=== PATIENT | female | born 1965 | race Caucasian/White ===

== ENCOUNTER 2017-08-11 09:21 | Emergency (ER) | payer BC ==
--- NOTE | 2017-08-11 10:14 | UC ---
Breast Complaint - HPI Summary HPI Summary: Pt presents with two complaints 1) Right side pain that radiates under her right breast. This pain started about 2 months ago and is worse with movement. 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 She gets a mammogram yearly and has done self breast exams without abnormalities. She has not taken anything for this pain. Denies fever, chills, chest pain, SOB, abdominal pain, N/V/D/C, or pain with breathing. 2) She also complains of right plantar surface pain for the past month. She reports a stabbing pain on the foot pad just below her 2nd and 3rd toes. Is painful at all times of the day. She has not taken anything for this pain or tried any shoe inserts. She has not changed her footwear recently and denies injury. - History of Current Complaint Hx Obtained From: Patient - Allergy/Home Medications Allergies/Adverse Reactions: Allergies Allergy/AdvReac Type Severity Reaction Status Date / Time No Known Allergies Allergy Verified 08/11/17 09:38 Home Medications: Home Medications Acetaminophen [Tylenol 8 Hour Arthritis] 2 tab PO BID PRN 08/11/17 [History Confirmed 08/11/17] PMH/Surg Hx/FS Hx/Imm Hx Previously Healthy: Yes - Surgical History Surgical History: Yes Surgery Procedure, Year, and Place: UTERINE FIBROID REMOVAL - Family History Known Family History: Positive: None - Social History Occupation: Employed Full-time Lives: With Family Alcohol Use: Occasionally Substance Use Type: None Smoking Status (MU): Light Every Day Tobacco Smoker Type: Cigarettes Amount Used/How Often: 5 CIG/DAY Length of Time of Smoking/Using Tobacco: since age 20 Have You Smoked in the Last Year: Yes Cessation Counseling: Counseled 3+Min - 10 Min Review of Systems Constitutional: Negative Skin: Negative Respiratory: Negative Cardiovascular: Negative Gastrointestinal: Negative Motor: Negative Neurovascular: Negative Musculoskeletal: Other: - Pain right ribs. Pain right plantar foot. Neurological: Negative Psychological: Negative All Other Systems Reviewed And Are Negative: Yes Physical Exam Triage Information Reviewed: Yes Appearance: Well-Appearing, No Pain Distress, Well-Nourished Vital Signs: Initial Vital Signs Temp 98.5 F 08/11/17 09:30 Pulse 81 08/11/17 09:30 Resp 16 08/11/17 09:30 BP 136/76 08/11/17 09:30 Pulse Ox 100 08/11/17 09:30 Vital Signs Reviewed: Yes Neck: Positive: Supple, No Lymphadenopathy, Other: - NTTP. FROM. Respiratory: Positive: Chest non-tender, Lungs clear, Normal breath sounds, No respiratory distress, No accessory muscle use Cardiovascular: Positive: RRR, No Murmur, Pulses Normal Abdomen Description: Positive: Nontender, No Organomegaly, Soft. Negative: CVA Tenderness (R), CVA Tenderness (L), Distended, Guarding Bowel Sounds: Positive: Present Musculoskeletal: Positive: Strength Intact - Right UE and right foot/ankle, ROM Intact - Right UE and right foot/ankle, No Edema - Right UE and right foot/ankle , Other: - TTP along ~8th rib from the right midaxillary line to the right sternum - worse with right shoulder flexion to 180 deg. No erythema, ecchymosis , or edema. Right foot: TTP over plantar aspect at the base of the 2nd and 3rd toes - this reproduces stabbing/sharp pain. No erythema, ecchymosis, or edema. Neurological: Positive: Alert, Muscle Tone Normal, Other: - Right UE sensations intact C4-T1. Right foot sensations intact right foot and all toes. Psychological: Positive: Age Appropriate Behavior - Additional Comments Right breast exam. NTTP. No nipple discharge. No masses or nodules appreciated in breast or axilla. Breast Pain Course/Dx - Course Course Of Treatment: Right ribs with CXR negative today. Suspect right intercostal muscle strain due to work habits and lifting of children - especially since this motion reproduces her pain. Will rx for voltaren gel and have her take tylenol for pain. Advised to rest and heat the area. She has a yearly mammogram scheduled for next week and a follow up with her PCP upcoming - I suggested she talk to her PCP about this pain if it persists. For her foot , it is possible that she has a gordillo's neuroma vs. fasciitis. She called podiatry and has an appt for late August. I advised her to keep this appointment for further eval. In the meantime, I suggested she try plantar shoe pads or inserts to see if this improves her pain. I have also supplied her with a post-op shoe to use as needed for comfort. - Diagnoses Provider Diagnoses: Intercostal muscle strain, Foot pain, right Discharge - Discharge Plan Condition: Stable Disposition: HOME Prescriptions: Diclofenac 1% GEL (NF) [Voltaren 1% GEL (NF)] 1 applic TOPICAL TID PRN #1 tube PRN Reason: Pain Patient Education Materials: Muscle Strain (ED), Gordillo Neuroma (ED) Referrals: Zane Padgett MD [Primary Care Provider] - Additional Instructions: If you develop a fever, SOB, chest pain, new or worsening symptoms - please call your PCP or go to the ED. 1) Regarding your foot: Try the post-op shoe when active or walking around the house. May also try OTC shoe inserts or foot pads for relief with daily shoes. Please keep your appointment with podiatry in August - they can further evaluate and treat your foot pain. 2) Regarding the right side pain: Keep your scheduled mammorgram and follow up with your PCP. Avoid strenuous activity, lifting, and overhead motions. Try a heating pack and keep taking tylenol as needed.
[2017-08-11 11:21] VITALS: BP 130/78
--- NOTE | 2017-08-11 11:32 | RAD ---
INDICATION: Right rib pain COMPARISON: None TECHNIQUE: Multiple views of the ribs were obtained. FINDINGS: Bones: There is no evidence of acute rib fracture. LUNGS: The lungs are clear. There is no pneumothorax. Pleural spaces: There is no evidence of hemothorax. Other: None IMPRESSION: NEGATIVE EXAMINATION.
== END 2017-08-11 12:06 | disposition home or self-care (01) ==
LOC: UCEAST 09:21
DX: M79.671 Pain in right foot (principal); S29.011A Strain of muscle and tendon of front wall of thorax, initial encounter; X50.9XXA Other and unspecified overexertion or strenuous movements or postures, initial encounter; Y92.9 Unspecified place or not applicable
CPT/HCPCS: 99213; G0463

== ENCOUNTER 2018-01-12 08:14 | Day surgery (SDC) | payer BC ==
--- NOTE | 2018-01-03 20:38 | HP ---
CC: Zane Padgett MD * PREOPERATIVE HISTORY AND PHYSICAL: DATE OF ADMISSION: 01/12/18 This patient is scheduled for same-day surgery admission by Dr. Hamlin on Monday , 01/12/18. ATTENDING SURGEON: Carlota Hamlin MD * (dictated by Anamaria King NP). CHIEF COMPLAINT: Lump, left shoulder and lump left anterior chest wall. HISTORY OF PRESENT ILLNESS: The patient is a 52-year-old female recently evaluated by Dr. Hamlin for a mass on her left shoulder that has been present for approximately 7 years. The patient states it has increased in size from approximately the size of a peanut to now approximately the size of a lemon. She feels that this is affecting the movement of her left arm and she has an associated aching and pulling sensation in her left arm. She has another lesion located on the left anterior chest wall that has been present for about 2 years and it has also increased from pea size to its current almond size. She has also noticed redness around it. Dr. Hamlin has examined the patient and has recommended excision of the mass on her left shoulder, which is likely a lipoma as well as excision of the dermal lesion on the left anterior chest wall as a same-day surgery procedure at [facility]. Dr. Hamlin described the nature of the surgical procedure, the relevant risks and benefits. On today I reviewed the expected postoperative care and recovery. The patient has had a chance to ask questions and stated that she understands the information and is satisfied with the answers given to her questions. She will sign surgical consent on the day of surgery. PAST MEDICAL HISTORY: Significant for anxiety and depression. PAST SURGICAL HISTORY: Removal of uterine fibroid. OB HISTORY: 4, para 3, miscarriage 1. Last pelvic exam in 2017 and she is up-to-date with mammogram. She is postmenopausal since 2014. MEDICATIONS: Escitalopram 10 mg daily at 9 p.m. She is on the following supplements: 1. Vitamin D3. 2. Vitamin C. 3. Osteo Bi-Flex. ALLERGIES: No known drug allergies. FAMILY HISTORY: Mother is diabetic, has hypertension and was diagnosed with a precancerous colon tumor; the patient's sister has CLL and her father is oxygen dependent. No known anesthesia complications, bleeding tendencies or clotting disorders. 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 She denies the use of alcohol or other substances. REVIEW OF SYSTEMS: Constitutional: No fevers, chills, night sweats, excessive fatigue or weight loss. Endocrine: No diabetes or thyroid disease. Hematologic: No easy bruising or bleeding. She has never received a blood transfusion. Respiratory: No dyspnea on exertion. No chronic cough. Cardiovascular: No anginal chest pain or palpitations. Gastrointestinal: No nausea, vomiting, persistent diarrhea or constipation. Genitourinary: No dysuria. Musculoskeletal: Intermittent low back pain that extends around the right hip and onto the right thigh and generalized achiness. Integumentary: Mass on the left shoulder and left anterior chest wall as described in history of present illness, most likely consistent with lipoma. Neurologic: No headache or blurred vision or areas of numbness. General: No previous anesthesia complications or bleeding tendencies or clotting disorders. PHYSICAL EXAMINATION GENERAL SURVEY: The patient is a 52-year-old female, overweight, well developed , in no acute distress. VITAL SIGNS: Height 65 inches, weight 210 pounds, body mass index 35. Blood pressure 138/82, pulse 84 and regular, respiratory rate 18, temperature 97.8 tympanic. HEENT: Benign. NECK: Supple. No cervical lymphadenopathy. BACK: No CVA tenderness. She reports tenderness in the region of the sacrum, but on exam there is no erythema or palpable mass or evidence of pilonidal disease. LUNGS: Breath sounds bilaterally clear and equal. HEART: Regular rate and rhythm. No murmurs or rubs appreciated. BREAST EXAM: Done recently, not repeated. ABDOMEN: Active bowel sounds. Obese, soft, nondistended, nontender throughout. No obvious masses, organomegaly, or evidence of umbilical hernia. She does have a belly button piercing. PELVIC AND RECTAL EXAMS: Deferred. EXTREMITIES: No edema or skin ulceration. NEUROLOGIC: Alert and oriented x3. Steady gait. SKIN: Left shoulder with subcutaneous fleshy mass that is mobile and consistent with lipoma; lesion on left anterior chest wall is a dermal based lesion that is smooth and oval shaped and at its apex is a pigmented lesion that appears to be benign, but in the field that would be required for removal. 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 PLAN: Same-day surgery admission to Dr. Hamlin's service on 01/12/18, for excision of lipoma left shoulder and excision dermal lesion left anterior chest wall. MAURICIO KING, RESOURCE MANAGER FORESTER [id number]/[facility] #: [id number] RUBIO
[~2018-01-12 08:14] MED LIST: Buffered Lidocaine 0.9% SYRIN* 5 ML/SYR SYRINGE INTRADERM ONE; Dexamethasone IV* 4 MG/ML 1 ML (4 MG) IV SLOW PU ONE; Famotidine IV* 10 MG/ML 2 ML (20 mg) IV ONE; Ondansetron ODT TAB* 4 MG PO SCH
[2018-01-12] MEDS ORDERED: Dexamethasone IV* 4 MG/ML 1 ML (4 MG) ONE (08:16)
[2018-01-12] MEDS ORDERED: ceFAZolin 2 GM PREMIX (*) 2 GM/50 ML BAG IVPB ONE (08:16)
[2018-01-12] MEDS ORDERED: Ondansetron ODT TAB* 4 MG ONE (08:16)
[2018-01-12] MEDS ORDERED: Famotidine IV* 10 MG/ML 2 ML (20 mg) ONE (08:16)
[2018-01-12] MEDS ORDERED: Midazolam* 1 MG/ML 5 ML VIAL (5 MG) ONE (09:04)
[2018-01-12] MEDS ORDERED: fentaNYL* 50 MCG/ML 2 ML VIAL (100 MCG VIAL) ONE (09:04)
[2018-01-12] MEDS ORDERED: Lidocaine 2% PF * 5 ML VIAL ONE (09:05)
[2018-01-12] MEDS ORDERED: Propofol* 10 MG/ML 20 ML BTL IV PUSH ONE (09:05)
[2018-01-12] MEDS ORDERED: Lidocaine 1% MPF wEPI 200,000* 30 ML SDV ONE (09:31)
[2018-01-12] MEDS ORDERED: Bupivacaine 0.5% SDV PF* 30ML VIAL ONE (09:31)
[2018-01-12] MEDS ORDERED: oxyCODONE/Acetamin 5/325 MG* TAB PO PRN (10:21)
[2018-01-12] MEDS ORDERED: Ondansetron ODT TAB* 4 MG PO PRN (10:21)
[2018-01-12] MEDS ORDERED: Naloxone* 0.4 MG/ML 1 ML VIAL IV PRN (10:21)
[2018-01-12] MEDS ORDERED: DiMENhydriNATE IV* 50 MG/ML VIAL IV PUSH PRN (10:21)
--- NOTE | 2018-01-12 10:55 | BRIEFOPN ---
Brief Operative Note - Surgery Procedures: Procedures ASPIRAT CURET-POST DELIV (11/12/99) BILAT TUBAL DESTRUCT NEC (04/19/02) D & C NEC (11/10/98) MONITORING NOS (04/19/02) HYSTEROSCOPY (11/10/98) LOW CERVICAL (04/19/02) UTERINE LES DESTRUCT NEC (03/17/00) 01/12/18 Op Note Pre-op dx: mass of left shoulder and mass of left chest wall Post-op dx: same Procedure: excision of left shoulder mass and left chest wall mass Surgeon: Boubacar Asst: JENNIFER Carpio Anesth: local-MAC EBL: 5 cc SCDs on during surgery ABx: given pre-op Complications: none Pt. tolerated procedure well and was transferred to in a stable condition. CLFoster
[2018-01-12] MEDS ORDERED: Ibuprofen TAB* 400 MG PO PRN (10:56)
[2018-01-12] MEDS ORDERED: oxyCODONE/Acetamin 5/325 MG* TAB ONE (11:06)
[2018-01-12 11:15] VITALS: BP 148/83
--- NOTE | 2018-01-13 08:47 | OP ---
CC: Dr. Zane Padgett * DATE OF OPERATION: 01/12/18 - SDS DATE OF : 69 SURGEON: Dr. Hamlin SILVER CHASER: JOSY Black student. PRE-OP DIAGNOSES: Mass at the left shoulder. Mass at the left chest wall. POST-OP DIAGNOSES: Mass at the left shoulder. Mass at the left chest wall. OPERATIVE PROCEDURE: Excision of mass of left shoulder and excision of mass of left chest wall. INDICATIONS: Ms. Barrientos is a 52-year-old woman, who presented to the office with symptomatic mass at the left shoulder and new lesion of the left chest wall. This prompted the plan for surgical intervention. DESCRIPTION OF PROCEDURE: She was brought to the operating room, placed on the OR table in a supine position and given IV sedation. The left chest and shoulder were prepped and draped in the usual sterile fashion. After infiltrating with local anesthetic, an incision was made over the mass on the left shoulder and subcutaneous tissue was divided with electrocautery. Then a combination of blunt and sharp dissection was used to the excise the mass, which appeared to be consistent with a multilobulated lipoma. This was handed off as a specimen. Hemostasis was achieved with electro-cautery and once this was adequate, closure was accomplished with 3-0 Vicryl in the subcutaneous layer and the skin was closed with 4-0 Prolene in a subcuticular fashion. Attention was then turned to the lesion of the anterior chest wall and this was excised in an elliptical fashion encompassing the lesion and the subcutaneous tissues divided with a combination of sharp and electrocautery dissection to completely excise the lesion. This was marked with a stitch marking the medial apex and then handed off as a specimen. Hemostasis was achieved with electrocautery and once this was adequate, closure was accomplished with 3-0 Vicryl in the subcutaneous layer and the skin was closed with 4-0 Prolene in a subcuticular fashion. Steri-Strips and a dry sterile dressing were applied to the both sites. All sponge and instrument counts were correct. The patient tolerated the procedure well and was transferred to recovery in a stable condition. [id number]/[facility] #: [id number] MTDD
== END 2018-01-12 11:48 | disposition home or self-care (01) ==
LOC: OR 08:14
PROVIDERS: ATTEND Surgery
DX: D17.1 Benign lipomatous neoplasm of skin and subcutaneous tissue of trunk (principal); D21.3 Benign neoplasm of connective and other soft tissue of thorax; F41.8 Other specified anxiety disorders; M19.90 Unspecified osteoarthritis, unspecified site; E66.9 Obesity, unspecified
CPT/HCPCS: 88304; 88305; 88341; 88342; A9270-GY; J0690; J1100; J2001; J2250; J2704; J3010

== ENCOUNTER 2018-01-20 07:25 | Emergency (ER) | payer BC ==
--- OUTSIDE RECORDS SUMMARY | 2018-01-20 07:34 | XMS REPORT ---
:1965 External Reference #:[id number] Author Organization [employer] Address [address] [place] [address] [place] [address] Phone [phone] Care Team Providers Name Role Phone Yarely Funes PA Care Team Information Coin Box Inspector Unavailable Zane Padgett MD Primary Care Physician Unavailable Payers Type Date Identification Numbers Payment Provider Subscriber Health Maintenance Policy Number: 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 Cigarette Use Former Cigarette Smoker ETOH Use Rarely consumes wine Recreational Drug Use Denies Drug Use Smoking Light tobacco smoker (10 or fewer cigarettes/day) Daily Caffeine Consumes on average 2 cups of regular coffee per day Exercise Type/Frequency 04/26/2016 Walks daily 30-45 mins Allergies, Adverse Reactions, Alerts Date Description Reaction Status Severity Comments 08/10/2012 NKDA active Medications Medication Date Status Form Strength Qnty SIG Indications Ordering Provider Acetaminophen Active Tablets 500mg 1 tab by Unknown Extra Strength 000 mouth twice a day as needed Vitamin C Active Capsules 500-400mg- 1 by Unknown 000 Unit mouth W/Vitamin D every day Escitalopram Active Tablets 10mg 1 by Unknown Oxalate 000 mouth every day Osteo Bi-Flex Active Tablets 250-200mg 1 by Unknown Regular Strength 000 mouth every day Vitamin B Active Tablets 1 by Unknown Complex 000 mouth every day Turmeric Active Capsules 500mg take one Unknown 000 capsule/t ablet daily by mouth Aleve Hx Tablets 220mg 2 tablets Unknown 000 - as needed 016 Mucinex Fast-Max Hx Liquid 10-650-400 1 cap as Unknown Cold & Sinus 000 mg/20ML needed Medications Administered in Office Medication Date Status Form Strength Qnty SIG Indications Ordering Provider Technetium TC Administered Injection Vincent SKsenia 99M 016 DO Travis Tetrofosmin, FACC Per Unit Dose Up To 40 Millicuries Vital Signs Date Vital Result Comment 01/19/2018 Heart Rate 76 /min Respiratory Rate 18 /min Body Temperature 97.7 F 01/03/2018 Height 65 inches 5'5" Weight 210.00 lb Heart Rate 84 /min BP Systolic Sitting 138 mmHg BP Diastolic Sitting 82 mmHg Respiratory Rate 18 /min Body Temperature 97.8 F BMI (Body Mass Index) 34.9 kg/m2 12/13/2017 Height 65 inches 5'5" Weight 210.00 lb Heart Rate 72 /min BP Systolic Sitting 152 mmHg BP Diastolic Sitting 84 mmHg Respiratory Rate 18 /min Body Temperature 98.1 F BMI (Body Mass Index) 34.9 kg/m2 06/07/2016 Height 64.5 inches 5'4.50" Weight 199.50 lb no shoes Heart Rate 78 /min BP Systolic Sitting 132 mmHg Rue reg cuff BP Diastolic Sitting 76 mmHg Rue reg cuff BP Systolic Standing 126 mmHg Rue reg cuff BP Diastolic Standing 78 mmHg Rue reg cuff Respiratory Rate 16 /min BMI (Body Mass Index) 33.7 kg/m2 Ejection Fraction 55-60% 05/13/2016 04/26/2016 Height 64.5 inches 5'4.50" Weight 196.00 lb no shoes Heart Rate 84 /min BP Systolic 158 mmHg Ra lrg cuff BP Diastolic 96 mmHg Ra lrg cuff BP Systolic Sitting 154 mmHg LA lrg cuff BP Diastolic Sitting 90 mmHg LA lrg cuff BP Systolic Standing 140 mmHg LA lrg cuff BP Diastolic Standing 90 mmHg LA lrg cuff Respiratory Rate 17 /min BMI (Body Mass Index) 33.1 kg/m2 Ejection Fraction 55-60% 08/17/2012 Results Test Date Test Result H/L Range Note Laboratory test 01/12/2018 Surgical Pathology SEE RESULT BELOW 1 finding Laboratory test 10/06/2017 Surgical Pathology SEE RESULT BELOW 2, 3 finding 1 SEE RESULT BELOW Name: MALINDA CHILD : [address]: Carlota Hamlin MD Acct: [id number] Unit: [id number] AGE: 52 Location: OR Re01/12/18 SEX: F Status: [facility] SPEC: [id number] MARIA FERNANDA: 01/12/18- SUBM DR: Carlota Hamlin MD REQ: [id number] RECD: 01/12/18-121 STATUS: SOUT _ ORDERED: LEVEL 3, LEVEL 4, IMMUNO-FIRST, IMMUNO-ADDL FINAL DIAGNOSIS 1. Soft tissue, left shoulder, excision: -- Mature adipose tissue compatible with benign lipoma. 2. Skin and subcutaneous tissue left chest wall, excision: -- Granular cell tumor. See comment. -- Deep, tip and lateral margins of resection are clear. Comment: Immunochemical stains for CD68 and S100 are performed with appropriate controls on block D. Both stains are markedly positive, supporting the above rendered diagnosis. No evidence of atypia identified. PRE-OPERATIVE DIAGNOSIS Benign lipomatous neoplasm of skin left shoulder and dermal lesion left anterior chest wall, 2) suture at medial apex GROSS DESCRIPTION 1. The specimen is received in formalin labeled, Mass Left Shoulder, and consists of a 5.5 x 3.9 x 2.1 cm aggregate of yellow lobulated partially encapsulated adipose tissue fragments. The cut surface is glistening yellow and lobulated. The specimen is inked, serially sectioned and product support sales representative sections are submitted in one cassette. 2. The specimen is received in formalin labeled, Left Chest Wall Lesion with Stitch at Medial [place], and consists of a 3.3 x 1.2 cm wrinkled bejarano-pink skin ellipse excised to a maximum depth of 1.5 cm. There is a suture attached to one long axis which designates the medial apex; the suture is redesignated 12:00. The specimen is inked as follows: 3:00 half blue, 9:00 half black and 12:00 tip green, serially sectioned from 12:00 to 6 :00 and submitted entirely in cassettes A through E to include ellipse ends in cassette A. CONTINUED ON NEXT PAGE DEPARTMENT OF PATHOLOGY, [address] [place] [address] Joey Andrews M.D. Director [facility] # [id number] RUN DATE: 01/17/18 [facility] LAB LIVE PAGE 2 Patient: MALINDA CHILD [id number] (Continued) GROSS DESCRIPTION (Continued) Signed by and Reported on: Joey Andrews MD 01/29 1027 END OF REPORT DEPARTMENT OF PATHOLOGY, [address] [place] [address] Joey Andrews M.D. Director [facility] # [id number] 2 [id number] SEE RESULT BELOW Name: MATEUSZMALINDA : [address]: Kenny Rhoades MD Acct: [id number] Unit: [id number] AGE: 52 Location: ENDOCEC Re10/06/17 SEX: F Status: DEP REF SPEC: [id number] MARIA FERNANDA: 10/06/17- SUBM DR: Kenny Rhoades MD REQ: [id number] RECD: 10/06/17 STATUS: VINCENT KLEIN DR: Zane Padgett MD _ ORDERED: LEVEL 4/2 COMMENTS: [id number] FINAL DIAGNOSIS 1. Colon, 80 cm, biopsy: -- Hyperplastic polyp. 2. Colon, 20 cm, biopsy: -- Hyperplastic polyp. CLINICAL HISTORY Screening/Surveillance for malignancy in asymptomatic patient. POST-OPERATIVE DIAGNOSIS Colonoscopy to terminal ileum, prep excellent ? 5 mm polyp at 80 cm; 5 mm polyp at 20 cm. Conclusions/Plan: Await pathology GROSS DESCRIPTION 1. The specimen is received in formalin labeled, Colon Polyp at 80 cm, and consists of a 0.3 x 0.2 x 0.2 cm bejarano-pink polypoid soft tissue fragment which is submitted entirely in one cassette. 2. The specimen is received in formalin labeled, Colon Polyp at 20 cm, and consists of two bejarano-pink polypoid soft tissue fragments averaging 0.3 x 0.2 x 0.2 cm which are submitted entirely in one cassette. Signed (signature on file) oJey Andrews MD 0950 END OF REPORT * ML=Testing performed at Main Lab DEPARTMENT OF PATHOLOGY, [address] [place] [address] Joey Andrews M.D. Director [facility] # [id number] Procedures Date CPT Code Description Status 10/06/2017 52120 Colonoscopy Flexible W/Biopsy Completed 10/06/2017 Colonoscopy Completed 05/17/2017 Colonoscopy Completed 05/27/2016 95886 Stress Test Completed 05/27/2016 81086 Myocardial Perfusion Imaging Tomographic (Spect) Completed Multiple Studies 05/13/2016 89772 ECHO Transthoracic, Real-Time 2D With Doppler And Color Completed Flow 04/26/2016 75638 EKG Tracing & Interpretation Completed 09/17/2012 12279 Holter Monitoring 24 HR New Completed 09/14/2012 77957 ECHO Stress Test Incl Perf Contiuous ekg Monitoring Completed W/Phys Superv 08/17/2012 06250 ECHO Transthoracic, Real-Time 2D With Doppler And Color Completed Flow 08/10/2012 64215 EKG Tracing & Interpretation Completed Encounters Type Date Location Provider CPT E/M Dx Office Visit 06/07/2016 [facility] Dexter Lawson, 19974 R07.9 2:00p Thelma Craig, EMILY, [facility] Office Visit 04/26/2016 [facility] Dexter Lawson, 68071 R07.9 2:00p Thelam Craig, EMILY, [facility] [address] 786.50 3:15p [facility] 64031 786.50 12:15p Thelma Craig, EMILY, [facility] 785.1 Plan of Care No Information Available
--- OUTSIDE RECORDS SUMMARY | 2018-01-20 07:35 | XMS REPORT ---
:1965 External Reference #:[id number] Author Organization [employer] Address [address] [address] Phone [phone] Care Team Providers Name Role Phone Yarely Funes PA Care Team Information [employer] Scout Unavailable Zane Padgett MD Primary Care Physician Unavailable Payers Type Date Identification Numbers Payment Provider Subscriber Health Maintenance Policy Number: [facility] Ramez Child [facility] (O) [id number] PayID: [id number] [address] [address] [place] [address] Problems Date Description Provider Status Onset: 04/26/2016 Chest pain Star Lawson M.D., [facility], [facility] Active Family History Date Family Member(s) Problem(s) Comments General Hypertension Father NE age 58 Onset: (age 30 Years) Mother [...] Unit mouth W/Vitamin D every day Escitalopram 00/00/0 Active Tablets 10mg 1 by Unknown Oxalate [...] Millicuries Vital Signs Date Vital Result Comment 01/03/2018 Height 65 inches 5'5" Weight 210.00 [...] Test Result H/L Range Note Laboratory test 10/06/2017 Surgical Pathology SEE RESULT BELOW 1, 2 finding 1 [id number] 2 SEE RESULT BELOW Name: MALINDA CHILD : [address]: Kenny Rhoades MD Acct: [id number] Unit: [id number] AGE: 52 Location: ENDOC Re10/06/17 SEX: F Status: DEP REF SPEC: [id number] MARIA FERNANDA: 10/06/17- SUBM DR: Kenny Rhoades MD REQ: [id number] RECD: 10/06/17 STATUS: VINCENT KLEIN DR: Zane Padgett MD _ ORDERED: LEVEL 4/2 COMMENTS: [id number] FINAL DIAGNOSIS 1. Colon, 80 cm, biopsy: [...] in one cassette. Signed (signature on file) Joey Andrews MD 0950 END OF REPORT * ML=Testing performed at Main Lab DEPARTMENT OF PATHOLOGY, [address] [place] [address] Joey Andrews M.D. Director [facility] # [id number] Procedures Date CPT Code Description Status 10/06/2017 38804 Colonoscopy Flexible W/Biopsy Completed 10/06/2017 Colonoscopy Completed 05/17/2017 Colonoscopy Completed 05/27/2016 45992 Stress Test Completed 05/27/2016 24483 Myocardial Perfusion Imaging Tomographic (Spect) Completed Multiple Studies 05/13/2016 07714 ECHO Transthoracic, Real-Time 2D With Doppler And Color Completed Flow 04/26/2016 99713 EKG Tracing & Interpretation Completed 09/17/2012 73918 Holter Monitoring 24 HR New Completed 09/14/2012 42431 ECHO Stress Test Incl Perf Contiuous ekg Monitoring Completed W/Phys Superv 08/17/2012 01104 ECHO Transthoracic, Real-Time 2D With Doppler And Color Completed Flow 08/10/2012 44709 EKG Tracing & Interpretation Completed Encounters Type Date Location Provider CPT E/M Dx Office Visit 06/07/2016 [facility] Sasha Lawson, 53095 R07.9 2:00p Thelma Craig, ELISEO, [facility] Office Visit 04/26/2016 [facility] Sasha Lawson, 31631 R07.9 2:00p Thelma Craig, EMILY, [facility] Office Visit 09/24/2012 [facility] Sasha Lawson, 70676 786.50 3:15p Thelma Craig, FACC, [facility]AS[facility] Office Visit 08/10/2012 [facility] Of Star Lawson, 85276 786.50 12:15p Thelma Craig, [facility], [facility] 785.1 Plan of Care Future Appointment(s):01/19/2018 3:15 pm - JOSY Knox at [facility]01/12/2018 9:15 am - Carlota Hamlin MD at [facility]01/03/2018 - Anamaria King, NPD17.22 Benign lipomatous neoplasm of skin, subcu of left armFollow up:syyyurM46.20 Benign lipomatous neoplasm of skin, subcu of unsp limbZ01.818 Encounter for other preprocedural examination
[2018-01-20 07:43] VITALS: BP 149/82
[2018-01-20] MEDS ORDERED: Ibuprofen TAB* 400 MG PO ONE (08:06)
--- NOTE | 2018-01-20 11:07 | UC ---
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 She started feeling low abdominal pain on left side since yesterday and as she stretched in bed it would feel like a pull, the pain usually dull "like ovulation pain" but very intense and sharp when she coughs and strains during BM. She denies n/v/d or abnormal stools. Pain is also present when she sits up or lays down in bed. She states she gained 30 lbs since menopause 4 years ago - History of Current Complaint Chief Complaint: UCAbdominalPain Stated Complaint: PAIN ON SIDE Time Seen by Provider: 01/20/18 07:46 Hx Obtained From: Patient Onset/Duration: Sudden Onset, Lasting Days Onset Severity: Mild Current Severity: Moderate Pain Intensity: 4 Pain Location at: left lower quadrant Associated Signs & Symptoms: Positive: Abdominal Pain - Allergy/Home Medications Allergies/Adverse Reactions: Allergies Allergy/AdvReac Type Severity Reaction Status Date / Time No Known Allergies Allergy Verified 01/20/18 09:01 PMH/Surg Hx/FS Hx/Imm Hx Psychological History: Depression - Surgical History Surgical History: Yes Surgery Procedure, Year, and Place: 2000 UTERINE [place] [facility] [place] [facility] [place] - Family History Known Family History: Positive: None - Social History Alcohol Use: Rare Alcohol Amount: 2 TIMES A YEAR Substance Use Type: None Smoking Status (MU): Heavy Every Day Tobacco Smoker Type: Cigarettes Amount Used/How Often: 1/2 ppd Length of Time of Smoking/Using Tobacco: SINCE AGE 21 Have You Smoked in the Last Year: Yes When Did the Patient Quit Smoking/Using Tobacco: SINCE AGE 21 Review of Systems Gastrointestinal: Abdominal Pain All Other Systems Reviewed And Are Negative: Yes Physical Exam Triage Information Reviewed: Yes Appearance: Well-Appearing, No Pain Distress, Obese Vital Signs: Initial Vital Signs Temp 97.4 F 01/20/18 07:35 Pulse 85 01/20/18 07:35 Resp 16 01/20/18 07:35 BP 149/82 01/20/18 07:35 Pulse Ox 100 01/20/18 07:35 Vital Signs Reviewed: Yes Eyes: Positive: Conjunctiva Clear ENT: Positive: Hearing grossly normal, Uvula midline Neck: Positive: Supple, Nontender, No Lymphadenopathy Respiratory: Positive: Chest non-tender, Lungs clear, Normal breath sounds, No respiratory distress Cardiovascular: Positive: RRR, No Murmur, Pulses Normal, Brisk Capillary Refill Abdomen Description: Positive: No Organomegaly, Soft, Other: - pinpoint tenderness upon palpation LLQ, no hernia noted upon valsalva as patient is standing up, no distension or guarding Bowel Sounds: Positive: Present Musculoskeletal: Positive: Strength Intact, ROM Intact, No Edema Course/Dx - Course Course Of Treatment: abdominal contusion, possible fascial sprain, no discernible hernia on physical exam, f/u with PCP and start ibuprofen as needed - Differential Dx - Multi-Symptom Provider Diagnoses: abdominal contusion Discharge - Sign-Out/Discharge Documenting (check all that apply): Discharge/Admit/Transfer - Discharge Plan Condition: Good Disposition: HOME Patient Education Materials: Contusion in Adults (ED), Ibuprofen (By mouth) Referrals: Zane Padgett MD [Primary Care Provider] - Additional Instructions: follow up with Primary care for re-evaluation and assessment for need of further imaging. - Billing Disposition and Condition Condition: GOOD Disposition: Home
== END 2018-01-20 08:22 | disposition home or self-care (01) ==
LOC: UCEAST 07:25
DX: S30.1XXA Contusion of abdominal wall, initial encounter (principal); W01.198A Fall on same level from slipping, tripping and stumbling with subsequent striking against other object, initial encounter; Y93.9 Activity, unspecified; Y92.000 Kitchen of unspecified non-institutional (private) residence as the place of occurrence of the external cause; F32.9 Major depressive disorder, single episode, unspecified; F17.210 Nicotine dependence, cigarettes, uncomplicated
CPT/HCPCS: 99212; A9270-GY; G0463

== ENCOUNTER 2018-01-20 08:54 | Emergency (ER) | payer BC ==
[2018-01-20] MEDS ORDERED: NS 0.9% 1000 ML* 1,000 ML IV ONE (09:44)
[2018-01-20 10:03] LABS: ABS Basophils 0.1 10^3/ul (0-0.2); ABS Eosinophils 0.2 10^3/ul (0-0.6); ABS Lymphocytes 2.3 10^3/ul (1.0-4.8); ABS Monocytes 0.9 10^3/ul (0-0.8); ABS Neutrophils 5.3 10^3/ul (1.5-7.7); ABS Nucleated RBC 0 10^3/ul; Eosinophil % 1.8 % (0-6); Hematocrit 42 % (35-47); Hemoglobin 14.3 g/dl (12.0-16.0); Lymphocyte % 26.1 % (25-47); Mean Corpuscular HGB Conc 34 g/dl (31-36); Mean Corpuscular Hemoglobin 30 pg (27-31); Mean Corpuscular Volume 89 fL (80-97); Mean Platelet Volume 6.7 um3 (7.4-10.4); Nucleated Red Blood Cells % 0; Platelet Count 408 10^3/ul (150-450); Red Blood Count 4.71 10^6/ul (4.0-5.4); Red Cell Distribution Width 14 % (10.5-15); White Blood Count 8.6 10^3/ul (3.5-10.8)
[2018-01-20 10:21] LABS: EGFR Non-African American 96.5 (>60)
[2018-01-20 11:11] LABS: Urine Appearance Clear; Urine Blood Negative (Negative); Urine Color Yellow; Urine Ketones Negative (Negative); Urine Protein Negative (Negative); Urine Specific Gravity 1.016 (1.010-1.030); Urine Urobilinogen Negative (Negative)
--- NOTE | 2018-01-20 11:23 | ED ---
Abdominal Pain/Female - HPI Summary HPI Summary: Pt. is a 52 y.o female who presents to the ER for abdominal pain x 3-4 days. Pain is located to the LLQ and is sharp in nature. Pain is intermittent and worse with movement. Symptoms of nausea. No associated symptoms of vomiting, diarrhea, constipation, urinary symptoms. Surgical history of and fibroid removal. Symptoms are moderate in severity. Patient has no significant past medical history. Pt. 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 She sustained numerous bruises to arms and legs. No head injury. - History of Current Complaint Chief Complaint: EDAbdPain Stated Complaint: LT SIDE PAIN LOW ABDN Time Seen by Provider: 01/20/18 09:35 Hx Obtained From: Patient Pain Intensity: 3 Allergies/Adverse Reactions: Allergies Allergy/AdvReac Type Severity Reaction Status Date / Time No Known Allergies Allergy Verified 01/20/18 09:01 PMH/Surg Hx/FS Hx/Imm Hx Previously Healthy: Yes Musculoskeletal History: Reports: Hx Arthritis - ALL JOINTS, Hx Bursitis - RIGHT LEG, Hx Tendonitis - LEFT HAND, Other Musculoskeletal History - NEGATIVE FOR RHEUMATOID ARTHRITIS Sensory History: Denies: Hx Contacts or Glasses, Hx Hearing Aid Opthamlomology History: Denies: Hx Contacts or Glasses Psychiatric History: Reports: Hx Anxiety, Hx Depression - Cancer History Hx Chemotherapy: No Hx Radiation Therapy: No - Surgical History Surgery Procedure, Year, and Place: 2000 UTERINE FIBROID REMOVAL, [facility] [place]. 2001 CSECTION, [facility] [place] Hx Anesthesia Reactions: No Infectious Disease History: No Infectious Disease History: Denies: Traveled Outside the [place] in Last 30 Days - Family History Known Family History: Positive: None - Social History Occupation: Employed Full-time Lives: With Family Alcohol Use: None Alcohol Amount: 2 TIMES A YEAR Substance Use Type: Reports: None Smoking Status (MU): Light Every Day Tobacco Smoker Type: Cigarettes Amount Used/How Often: 1/2 ppd Length of Time of Smoking/Using Tobacco: SINCE AGE 21 Have You Smoked in the Last Year: Yes Review of Systems Constitutional: Negative Negative: Fever, Chills Positive: Abdominal Pain, Nausea. Negative: Vomiting, Diarrhea Genitourinary: Negative All Other Systems Reviewed And Are Negative: Yes Physical Exam Triage Information Reviewed: Yes Vital Signs On Initial Exam: Initial Vitals Temp Pulse Resp BP Pulse Ox 96.7 F 80 14 159/80 98 01/20/18 09:01 01/20/18 09:01 01/20/18 09:01 01/20/18 09:01 01/20/18 09:01 Vital Signs Reviewed: Yes Appearance: Positive: Well-Appearing - Pt. lying in bed in no acute distress. Skin: Positive: Warm, Dry Head/Face: Positive: Normal Head/Face Inspection Eyes: Positive: Normal Abdomen Description: Positive: Soft, Other: - Mildly distended. Abdomen is soft throughout with mild tenderness to the left and right lower quadrants. No rebound tenderness or guarding. Neurological: Positive: Normal, CN Intact II-III Psychiatric: Positive: Affect/Mood Appropriate Diagnostics - Vital Signs Vital Signs Temp Pulse Resp BP Pulse Ox 01/20/18 10:45 66 160/108 97 01/20/18 10:15 69 153/87 96 01/20/18 10:00 76 97 01/20/18 09:45 73 145/97 97 01/20/18 09:35 78 98 01/20/18 09:01 96.7 F 80 14 159/80 98 - Laboratory Lab Results: Lab Results 01/20/18 01/20/18 01/20/18 Range/Units 09:51 09:51 10:54 WBC 8.6 (3.5-10.8) 10^3/ul RBC 4.71 (4.0-5.4) 10^6/ul Hgb 14.3 (12.0-16.0) g/dl Hct 42 (35-47) % MCV 89 (80-97) fL MCH 30 (27-31) pg MCHC 34 (31-36) g/dl RDW 14 (10.5-15) % Plt Count 408 (150-450) 10^3/ul MPV 6.7 L (7.4-10.4) um3 Neut % (Auto) 61.3 (38-83) % Lymph % (Auto) 26.1 (25-47) % Aiken % (Auto) 10.0 H (0-7) % Eos % (Auto) 1.8 (0-6) % Baso % (Auto) 0.8 (0-2) % Absolute Neuts (auto) 5.3 (1.5-7.7) 10^3/ul Absolute Lymphs (auto) 2.3 (1.0-4.8) 10^3/ul Absolute Monos (auto) 0.9 H (0-0.8) 10^3/ul Absolute Eos (auto) 0.2 (0-0.6) 10^3/ul Absolute Basos (auto) 0.1 (0-0.2) 10^3/ul Absolute Nucleated RBC 0 10^3/ul Nucleated RBC % 0 Sodium 137 L (139-145) mmol/L Potassium 4.2 (3.5-5.0) mmol/L Chloride 104 (101-111) mmol/L Carbon Dioxide 28 (22-32) mmol/L Anion Gap 5 (2-11) mmol/L BUN 14 (6-24) mg/dL Creatinine 0.65 (0.51-0.95) mg/dL Est GFR ( Amer) 124.1 (>60) Est GFR (Non-Af Amer) 96.5 (>60) BUN/Creatinine Ratio 21.5 H (8-20) Glucose 95 (70-100) mg/dL Calcium 9.3 (8.6-10.3) mg/dL Total Bilirubin 0.20 (0.2-1.0) mg/dL AST 22 (13-39) U/L ALT 36 (7-52) U/L Alkaline Phosphatase 80 (34-104) U/L C-Reactive Protein 11.33 H (< 5.00) mg/L Total Protein 7.0 (6.4-8.9) g/dL Albumin 3.9 (3.2-5.2) g/dL Globulin 3.1 (2-4) g/dL Albumin/Globulin Ratio 1.3 (1-3) Lipase 29 (11.0-82.0) U/L Urine Color Yellow Urine Appearance Clear Urine pH 7.0 (5-9) Ur Specific Ringold 1.016 (1.010-1.030) Urine Protein Negative (Negative) Urine Ketones Negative (Negative) Urine Blood Negative (Negative) Urine Nitrate Negative (Negative) Urine Bilirubin Negative (Negative) Urine Urobilinogen Negative (Negative) Ur Leukocyte Esterase Negative (Negative) Urine Glucose Negative (Negative) Result Diagrams: 01/20/18 09:51 01/20/18 09:51 Lab Statement: Any lab studies that have been ordered have been reviewed, and results considered in the medical decision making process. Abdominal Pain Fem Course/Dx - Course Course Of Treatment: Presenting for a several day history of lower abdominal pain and nausea. She is afebrile with stable vital signs. Labs and CT scan were ordered. Patient declines anti-emetics or analgesics at this time. Labs and urine are unremarkable. CT scan is negative for acute findings, reading per radiology. Results were discussed with pt. She took motrin [employer] and it has helped with her pain. Suspect muscle strain given recent fall. Advised to ice and continue NSAIDS. Activity as tolerated. To f.u with PCP if symptoms persist and to return to ER for increased pain, fever, vomiting or if concerned. Pt. understands and agrees with plan. - Diagnoses Differential Diagnosis: Positive: Appendicitis, Bowel Obstruction, Constipation , Diverticulitis, Renal Colic, Urinary Tract Infection Provider Diagnoses: Strain of abdominal muscle, Abdominal pain Discharge - Sign-Out/Discharge Documenting (check all that apply): Discharge/Admit/Transfer - Discharge Plan Condition: Good Disposition: HOME Patient Education Materials: Muscle Strain (ED), Abdominal Pain (ED) Referrals: Zane Padgett MD [Primary Care Provider] - Additional Instructions: Call PCP for follow up Ice intermittently NSAIDS for pain as directed Avoid heavy lifting Return to ER for increased pain, fever, vomiting or if concerned - Billing Disposition and Condition Condition: GOOD Disposition: Home
[2018-01-20] MEDS ORDERED: Iohexol 300* (CONTRAST) 10 ML SDV IV ONE (11:27)
--- NOTE | 2018-01-20 12:32 | RAD ---
CLINICAL HISTORY: Left lower quadrant pain. Relevant surgical history includes "uterine fibroid removal in 2001" COMPARISON: None TECHNIQUE: Contrast enhanced CT examination of the abdomen and pelvis from the lung bases through the initial tuberosities. The patient received 131 mL Omnipaque 300 intravenously prior to imaging. FINDINGS: VISUALIZED LUNG BASES: The visualized lung bases are grossly clear. There is no pleural effusion. ABDOMEN AND PELVIS: The liver, spleen, pancreas and adrenal glands are grossly normal in appearance. The gallbladder is normal. The kidneys are normal in appearance without focal mass, calcification or signs of hydronephrosis. Evaluation of the gastrointestinal tract is limited without oral contrast. The small and large bowel are not distended. The patient's normal appendix is identified in the right lower quadrant with gas in the lumen measuring just under 5 mm in diameter (coronal image 44).. There is no gross retroperitoneal or mesenteric lymphadenopathy. The pelvic viscera is normal in appearance. There is atherosclerotic calcification of the infrarenal abdominal aorta extending into the iliac arteries. Degenerative changes include multilevel loss of intervertebral disc height involving the lower thoracic and lumbar spine.There are no sinister bone lesions. IMPRESSION: 1. No definite CT apparent evidence of gastroenteritis within the limitations of a nonoral contrast CT examination. 2. No signs of obstructive uropathy. 3. Additional chronic and degenerative changes described in the body the report unlikely to be directly related to the patient's current presentation.
[2018-01-20 13:22] VITALS: BP 159/94
== END 2018-01-20 13:21 | disposition home or self-care (01) ==
LOC: ED 08:54
DX: S39.011A Strain of muscle, fascia and tendon of abdomen, initial encounter (principal); W18.09XA Striking against other object with subsequent fall, initial encounter; Y92.9 Unspecified place or not applicable; F17.210 Nicotine dependence, cigarettes, uncomplicated; R11.0 Nausea
CPT/HCPCS: 36415; 74177; 80053; 81003; 83690; 85025; 86140; 96360; 99283; Q9967

== ENCOUNTER 2019-07-18 17:25 | Emergency (ER) | payer BC ==
--- NOTE | 2019-07-18 17:30 | UC ---
Lower Extremity/Ankle HPI - HPI Summary HPI Summary: 54 yo female presents with RIGHT knee pain. She tells me that over the last week has been feeling clicking in her right knee and has noticed some swelling to the area over the last 4 days. The swelling began after shoveling and plowing a lot of snow 4 days ago, but had no specific injury. She believes the swelling is originating at her knee and going down into her calf. She denies specific injury, but it does hurt when she weight bears. She has been elevating and icing with little relief. Taking tylenol with no relief. She mentions that the last few dumas she has had diffuse joint pain that effects her wrists, fingers, hips, knees, and ankles - she saw her PCP for this and was apparently tested for RA and autoimmune disease that was all negative per pt. She denies fever, recent travel, SOB, chest pain. She does smoke daily. No known tick bites. - History of Current Complaint Stated Complaint: RT LEG SWELLING Time Seen by Provider: 07/18/19 17:30 Hx Obtained From: Patient Onset/Duration: Gradual Onset Severity Initially: Moderate Severity Currently: Moderate Pain Intensity: 7 Pain Scale Used: 0-10 Numeric Aggravating Factor(s): Standing, Ambulation Able to Bear Weight: Yes - Allergies/Home Medications Allergies/Adverse Reactions: Allergies Allergy/AdvReac Type Severity Reaction Status Date / Time No Known Allergies Allergy Verified 07/18/19 17:37 Home Medications: Home Medications Rosuvastatin Calcium [Crestor] 10 mg PO DAILY 07/18/19 [History Confirmed ] hydroCHLOROthiazide [Hydrochlorothiazide] 25 mg PO DAILY 07/18/19 [History Confirmed 07/18/19] PMH/Surg Hx/FS Hx/Imm Hx Endocrine History: Dyslipidemia Cardiovascular History: Hypertension Psychological History: Anxiety, Depression - Surgical History Surgical History: Yes Surgery Procedure, Year, and Place: 2000 UTERINE FIBROID REMOVAL, [facility]. 2001 CSECTION, [facility] - Family History Known Family History: Positive: None - Social History Occupation: Employed Full-time Lives: With Family Alcohol Use: None Alcohol Amount: 2 TIMES A YEAR Substance Use Type: None Smoking Status (MU): Light Every Day Tobacco Smoker Type: Cigarettes Amount Used/How Often: 1/2 ppd Length of Time of Smoking/Using Tobacco: SINCE AGE 21 Have You Smoked in the Last Year: Yes When Did the Patient Quit Smoking/Using Tobacco: SINCE AGE 21 Review of Systems All Other Systems Reviewed And Are Negative: No Constitutional: Positive: Negative Skin: Positive: Negative Respiratory: Positive: Negative Cardiovascular: Positive: Negative Neurovascular: Positive: Negative Musculoskeletal: Positive: Other: - Right knee pain and swelling Neurological: Positive: Negative Psychological: Positive: Negative Physical Exam - Summary Physical Exam Summary: GENERAL: NAD. WDWN. No pain distress. SKIN: No rashes, sores, lesions, or open wounds. CHEST: No accessory muscle use. Breathing comfortably and in no distress. CV: Pulses intact PT and DP. Cap refill <2seconds MSK: RIGHT KNEE: FROM. NTTP. Strength 5/5. Mild edema about right knee. No patella apprehension. Negative Jose, A/P drawer, Andrea, and varus/valgus stress. No calf edema or tenderness. Negative jean sign. No palpable cord. NEURO: Alert. Sensations intact and symmetric B/L LEs PSYCH: Age appropriate behavior. Triage Information Reviewed: Yes Vital Signs: Vital Signs: Temp Pulse Resp BP Pulse Ox 98.5 F 78 18 140/88 95 07/18/19 17:38 07/18/19 17:38 07/18/19 17:38 07/18/19 17:38 07/18/19 17:38 Vital Signs Reviewed: Yes Diagnostics - Radiology knee XR Radiology Interpretation Completed By: Radiologist Summary of Radiographic Findings: IMPRESSION: #. Very early osteoarthritis. Otherwise negative. Right leg US Radiology Interpretation Completed By: Radiologist Summary of Radiographic Findings: FINDINGS: Right deep veins: Unremarkable. The common femoral, femoral, proximal profunda femoral and popliteal veins are patent without thrombus. Normal Doppler waveforms. Normal compressibility and/ or augmentation response. Right superficial veins: Unremarkable. Saphenofemoral junction is patent without thrombus. Soft tissues: Diffuse edema. IMPRESSION: No evidence of deep vein thrombosis. Lower Extremity Course/Dx - Course Course Of Treatment: XR as above. US as above. Suspect overuse injury from shoveling/snow plowing. Advised to continue tylenol and RICE. F/u with Orthopedics. Will draw for lyme screen today, but have a low suspicion for this at this time as the knee is not warm or erythematous. - Differential Dx/Diagnosis Provider Diagnosis: Knee pain, Knee swelling Discharge ED - Sign-Out/Discharge Documenting (check all that apply): Patient Departure All imaging exams completed and their final reports reviewed: Yes - Discharge Plan Condition: Stable Disposition: HOME Patient Education Materials: Swollen Knee Joint (ED) Referrals: Anamaria Garcia MD [Primary Care Provider] - Sahra Rios MD [Medical Doctor] - As Soon As Possible Additional Instructions: If you develop a fever, shortness of breath, chest pain, new or worsening symptoms - please call your PCP or go to the ED immediately. The X-ray of your knee showed mild arthritis, but was otherwise normal. The ultrasound was normal. I recommend that you continue to take tylenol as directed and rest, ice, and elevate your knee to decrease pain and swelling. Please call Orthopedics at the number below to schedule an appointment for further evaluation within 1-2 weeks - Billing Disposition and Condition Condition: STABLE Disposition: Home
[2019-07-18 17:42] VITALS: BP 140/88
== END 2019-07-18 19:28 | disposition home or self-care (01) ==
LOC: UCEAST 17:25
DX: M25.561 Pain in right knee (principal); M25.461 Effusion, right knee; E78.5 Hyperlipidemia, unspecified; I10 Essential (primary) hypertension; F17.210 Nicotine dependence, cigarettes, uncomplicated; Z79.899 Other long term (current) drug therapy
CPT/HCPCS: 36415; 86618; 99211; G0463